=== PATIENT | female | born 1965 | race Caucasian/White ===

== ENCOUNTER 2023-12-11 12:36 | Outpatient (CLI) | payer BC ==
[2023-12-11 15:42] LABS: THYROID STIMULATING HORMONE 1.29 uIU/mL (0.34-5.60)
[2023-12-11 15:49] LABS: BUN - BLOOD UREA NITROGEN 13 mg/dL (6-20); CALCIUM 9.7 mg/dL (8.5-10.3); CARBON DIOXIDE - CO2 31 mmol/L (21-32); CHLORIDE 100 mmol/L (101-111); CHOL/HDL RATIO 3.6 (<4.4); CHOLESTEROL 217 mg/dL; CREATININE 0.8 mg/dL (0.6-1.3); GFR - MDRD 73 (>89); GLUCOSE 175 mg/dL (74-104); HDL CHOLESTEROL 60 mg/dL; LDL CHOLESTEROL,CALCULATED 122 mg/dL; POTASSIUM 3.6 mmol/L (3.5-4.5); SODIUM 139 mmol/L (135-145); TRIGLYCERIDES 173 mg/dL (48-352); VLDL CHOLESTEROL 35 mg/dL
[2023-12-11 16:03] LABS: CREATININE,URINE 47.7 mg/dL; PROTEIN/CREATININE RATIO,URINE 0.1 (<=0.2)
[2023-12-11 20:29] LABS: ESTIMATED AVERAGE GLUCOSE 163 mg/dL (70-100); HEMOGLOBIN A1c% 7.3 % (4.27-6.07)
[2023-12-12 08:10] LABS: HCV AB Non Reactive (Non Reactive)
== END 2023-12-11 12:37 | disposition home or self-care (01) ==
LOC: LAB.S 12:36
PROVIDERS: ATTEND Internal Medicine
DX: I10 Essential (primary) hypertension (principal); E11.9 Type 2 diabetes mellitus without complications; E03.9 Hypothyroidism, unspecified; N89.8 Other specified noninflammatory disorders of vagina; Z11.59 Encounter for screening for other viral diseases
CPT/HCPCS: 36415; 80048; 80061; 82570; 83036; 83721; 84156; 84443; 86803

== ENCOUNTER 2024-01-26 07:43 | Outpatient (CLI) | payer BC ==
--- NOTE | 2024-01-27 09:00 | Mammography Report ---
UNILATERAL RIGHT DIGITAL DIAGNOSTIC MAMMOGRAM 3D/2D WITH SPOT COMPRESSION: 01/26/2024 CLINICAL: Patient returns today to evaluate a focal asymmetry in the right breast. Comparison is made to exam dated: 01/20/2024 mammogram - [facility]. There are scattered areas of fibroglandular density in the right breast (category b / 25%-50% glandul ar tissue). There is a focal asymmetry in the right breast at 5 o'clock middle depth. This is seen in additional views. No other significant masses or calcifications are seen in the breast. IMPRESSION: INCOMPLETE: NEEDS ADDITIONAL IMAGING EVALUATION The focal asymmetry in the right breast is indeterminate. A targeted ultrasound of the right breast i s recommended and will be performed immediately following this exam. Based on the Tyrer Cuzick model (a risk assessment model) the patient's lifetime risk is 5.9% and her 10 year risk is 2.4%. According to the ACR, ACS, and NCCN guidelines, an annual breast MRI exam chato g with mammogram is recommended if the patient's lifetime risk is 20% or greater. This exam was interpreted at Station ID: [id number]. NOTE: For mammograms, a report in lay terms will be sent to the patient. Approximately 15% of breast malignancies will not be visualized mammographically. In the management of a palpable breast mass, a negative mammogram must not discourage biopsy of a clinically suspicious lesion. Electronically Signed By: Danyelle Topete M.D. lk/:01/26/2024 09:31:13 ACR BI-RADS Category 0: Incomplete 3340F PARENCHYMAL PATTERN: (A) - The breast(s) demonstrate(s) scattered fibroglandular densities. BI-RADS CATEGORY: (0) - 0 Ultrasound [id number] Immediate follow-up LATERALITY: (B)
--- NOTE | 2024-01-27 09:00 | Ultrasound Report ---
LIMITED ULTRASOUND OF RIGHT BREAST: 01/26/2024 CLINICAL: Patient returns today to evaluate a focal asymmetry in the right breast. Comparison is made to exam dated: 01/20/2024 mammogram - [facility]. Color flow ultrasound of the right breast 5 o'clock region was performed on the areas of interest. G ray scale images of the real-time examination were reviewed. There is an irregular, iildefined mass in the right breast at 5 o'clock anterior depth. This irregul ar mass is hypoechoic. This likely correlates with mammography findings. Color flow imaging demonst rates that there is no vascularity present. The right axilla was interogated and normal appearing lymph nodes are visualized. IMPRESSION: SUSPICIOUS OF MALIGNANCY No right axillary adenopathy. The irregular mass in the right breast is at a low suspicion for lobular-type malignancy. An ultraso und guided biopsy is recommended. This was discussed with the patient by the radiologist at the time of the exam. This exam was interpreted at Station ID: [id number]. Electronically Signed By: Danyelle Topete M.D. lk/:01/26/2024 11:00:04 Ultrasound BI-RADS: 4a Low suspicion for malignancy BI-RADS CATEGORY: (4a) - Low Susp Biopsy follow-up [id number] Immediate follow-up LATERALITY: (B)
== END 2024-01-26 07:44 | disposition home or self-care (01) ==
LOC: DI 07:43
PROVIDERS: ATTEND Internal Medicine
DX: N63.13 Unspecified lump in the right breast, lower outer quadrant (principal)

== ENCOUNTER 2024-02-04 08:57 | Outpatient (CLI) | payer BC ==
[~2024-02-04 08:57] MED LIST: LIDOCAINE 1%-EPI 1:100000 20 ML MDV ONE; LIDOCAINE-MPF 1% 5 ML VIAL ONE
[2024-02-04] MEDS ORDERED: LIDOCAINE 1%-EPI 1:100000 20 ML MDV ONE (09:22)
[2024-02-04] MEDS ORDERED: LIDOCAINE-MPF 1% 5 ML VIAL ONE (09:23)
--- NOTE | 2024-02-12 09:56 | Ultrasound Report ---
LIMITED ULTRASOUND OF RIGHT BREAST: 02/11/2024 CLINICAL: Patient returns today to evaluate a focal asymmetry in the right breast. Comparison is made to exams dated: 01/26/2024 ultrasound, 01/26/2024 mammogram, and 01/20/2024 mammogram - [facility]. Color flow ultrasound of the right breast 5 o'clock region was performed. [place] scale images of the r eal-time examination were reviewed. The previously described irregular mass at 5 o'clock, 3 cm from the nipple appears less prominent com pared to prior ultrasound on 01/26/2024. This finding likely corresponds to mammographic focal asymmet ry intially seen on baseline screening mammogram. IMPRESSION: PROBABLY BENIGN Right breast irregular mass at 5 o'clock, decreased in prominence since prior ultrasound 01/26/2024. T herefore, initially scheduled ultrasound guided core breast biopsy was not performed. Recommend follo w up right breast diagnostic mammogram and ultrasound in 6 months to demonstrate stability. Findings and recommendations were discussed with the patient by Dr. Orosco at time of imaging. This exam was interpreted at Station ID: [id number]. Electronically Signed By: Yaneth Quinonez M.D., Ph.D. eb/:02/11/2024 15:36:12 Ultrasound BI-RADS: 3 Probably benign BI-RADS CATEGORY: (3) - 3 Mammo and [place] [id number] 6 month follow-up LATERALITY: (B)
== END 2024-02-04 08:58 | disposition home or self-care (01) ==
LOC: DI 08:57
PROVIDERS: ATTEND Internal Medicine
DX: N63.14 Unspecified lump in the right breast, lower inner quadrant (principal)